=== PATIENT | male | born 1990 | race Caucasian/White ===

== ENCOUNTER 2021-09-05 19:03 | Emergency (ER) | payer OTHER ==
[~2021-09-05] VITALS: Ht 170.2 cm; Wt 72.7 kg
[2021-09-05 21:31] VITALS: BP 116/71
== END 2021-09-05 21:40 | disposition home or self-care (01) ==
LOC: EMS 19:11
DX: Z03.821 Encounter for observation for suspected ingested foreign body ruled out (principal)
CPT/HCPCS: 74176; 99284; Z7502